=== PATIENT | female | born 1995 | race African-American/Black ===

== ENCOUNTER 2019-01-28 12:12 | Emergency (ER) | payer OTHER ==
--- NOTE | 2019-01-28 12:23 | PDOC ---
Rapid Medical Evaluation Time Seen by Provider: 01/28/19 12:20 Medical Evaluation: Allergies Allergy/AdvReac Type Severity Reaction Status Date / Time No Known Allergies Allergy Verified 01/28/19 12:15 01/28/19 12:20 I have performed a brief in-person evaluation of this patient. The patient presents with a chief complaint of: chest pain x 2-3 weeks after carrying something heavy, also some back pain. denies OCPs, recent surgery, smoking. went to [facility] November 21 Pertinent physical exam findings: well appearing I have ordered the following: EKG The patient will proceed to the ED for further evaluation. Discharge Disposition - Diagnosis Chest pain - Referrals - Patient Instructions - Post Discharge Activity
[2019-01-28 12:25] VITALS: BP 112/79; PULSE 71; TEMP 98.4; BMI 19.3
--- NOTE | 2019-01-28 13:31 | PDOC ---
History of Present Illness - General Chief Complaint: Chest Pain Stated Complaint: CHEST PAIN Time Seen by Provider: 01/28/19 12:20 History Source: Patient Exam Limitations: No Limitations - History of Present Illness Initial Comments: 01/28/19 13:25 HISTORY OF PRESENT ILLNESS: Is a 23-year-old woman denies medical history who presents emergency department for evaluation of upper back pain radiating to her chest status post heavy lifting 2 to 3 weeks ago. Patient reports she was carrying 7 or 8 water bottles at one time and noticed the pain. She reports the pain does get worse when she does any heavy lifting and occasionally after she eats. She denies recent travel, leg pain, oral contraception or smoking. She denies fevers, chills, shortness of breath, nausea, vomiting, cough. No recent travel or sick contacts. PAST MEDICAL HISTORY: Denies past medical history SURGICAL HISTORY: Denies ALLERGIES: No known drug allergies REVIEW OF SYSTEMS General/Constitutional: Denies fever or chills. Denies weakness, weight change. HEENT: Denies change in vision. Denies ear pain or discharge. Denies sore throat. Cardiovascular: Denies chest pain or shortness of breath. Respiratory: Denies cough, wheezing, or hemoptysis. Gastrointestinal: Denies nausea, vomiting, diarrhea or constipation. Denies rectal bleeding. Genitourinary: Denies dysuria, frequency, or change in urination. Musculoskeletal: See HPI Skin and breasts: Denies rash or easy bruising. Neurologic: Denies headache, vertigo, loss of consciousness, or loss of sensation. Psychiatric: Denies depression or anxiety. Endocrine: Denies increased thirst. Denies abnormal weight change. Hematologic/Lymphatic: Denies anemia, easy bleeding, or history of blood clots. Allergic/Immunologic: Denies hives or skin allergy. Denies latex allergy. PHYSICAL EXAM General Appearance: Well-appearing, appropriately dressed. No apparent distress , no intoxication. HEENT: EOMI, PERRLA, normal ENT inspection, normal voice, TMs normal, pharynx normal. No conjunctival pallor. No photophobia, scleral icterus. Neck: Supple. Trachea midline. No tenderness, rigidity, carotid bruit, stridor , lymphadenopathy, or thyromegaly. Respiratory/Chest: Lungs CTAB. No shortness of breath, chest tenderness, respiratory distress, accessory muscle use. No crackles, rales, rhonchi, stridor , wheezing, dullness Cardiovascular: RRR. S1, S2. No JVD, murmur, bradycardia, tachycardia. Vascular Pulses: Dorsalis-Pedis (R): 2+, Dorsalis-Pedis (L): 2+ Gastrointestinal/Abdominal: Normal bowel sounds. Abdomen soft, non-distended. No tenderness or rebound tenderness. No organomegaly, pulsatile mass, guarding, hernia, hepatomegaly, splenomegaly. Lymphatic: No adenopathy, tenderness. Musculoskeletal/Extremities: Normal inspection. FROM of all extremities, normal capillary refill. Pelvis Stable. No CVA tenderness. No tenderness to extremities, pedal edema, swelling, erythema or deformity. Integumentary: Appropriate color, dry, warm. No cyanosis, erythema, jaundice or rash Neurologic: [place] line attendant II-XII intact. Fully oriented, alert. Appropriate mood/affect. Motor strength 5/5. No appreciable EOM palsy, facial droop or sensory deficit. Is this a multiple visit Asthma Patient?: No Past History - Past Medical History Allergies/Adverse Reactions: Allergies Allergy/AdvReac Type Severity Reaction Status Date / Time No Known Allergies Allergy Verified 01/28/19 12:15 Home Medications: Ambulatory Orders NK [No Known Home Medication] 01/28/19 COPD: No - Psycho Social/Smoking Cessation Hx Smoking History: Never smoked Have you smoked in the past 12 months: No Information on smoking cessation initiated: No Hx Alcohol Use: No Drug/Substance Use Hx: No *Physical Exam - Vital Signs Last Vital Signs Temp Pulse Resp BP Pulse Ox 98.4 F 71 20 112/79 98 01/28/19 12:21 01/28/19 12:21 01/28/19 12:21 01/28/19 12:21 01/28/19 12:21 Medical Decision Making - Medical Decision Making 01/28/19 13:28 A/P: 23-year-old woman with atraumatic back pain radiating to her chest. PERC-0 EKG sinus rhythm with rate of 63. Sinus arrhythmia is noted. Normal intervals and axis present. No ischemic changes noted. Physical exam is within normal limits Likely dyspepsia given history and physical. Discharge home with strict return precautions. Discharge - Discharge Information Problems reviewed: Yes Clinical Impression/Diagnosis: Dyspepsia Condition: Stable Disposition: HOME - Admission No - Follow up/Referral Referrals: [facility] [place] [facility] [place] [Provider Group] - Patient Discharge Instructions Patient Printed Discharge Instructions: DI for Dyspepsia Additional Instructions: Take Maalox as directed by courtesy booth cashier's instructions as needed for pain. Avoid spicy foods and alcoholic beverages to your pain resolves. You have been given a referral for primary doctor. Call to schedule appointment for reevaluation. Return to emergency department for any new or worsening symptoms. Thank you very much for choosing us to provide your emergent health care needs. - Post Discharge Activity
[2019-01-28] MEDS ORDERED: MAG HYDROX/AL HYDROX/SIMETH 30 ML UNIT-DOSE CUP ONE (13:37)
[2019-01-28] MEDS ORDERED: MAG HYDROX/AL HYDROX/SIMETH 30 ML UNIT-DOSE CUP PO ONE (13:39)
--- NOTE | 2019-01-29 12:56 | EKG ---
Test Reason : Blood Pressure : / mmHG Vent. Rate : 063 BPM Atrial Rate : 063 BPM P-R Int : 148 ms QRS Dur : 088 ms QT Int : 370 ms P-R-T Axes : 065 078 060 degrees QTc Int : 378 ms SINUS RHYTHM WITH MARKED SINUS ARRHYTHMIA NO PREVIOUS ECGS AVAILABLE Confirmed by ZULY STUART MD ([id number]) on 01/29/2019 12:56:03 PM Referred By: Confirmed By:ZULY STUART MD
== END 2019-01-28 13:40 | disposition home or self-care (01) ==
LOC: JERFT 12:12
DX: R10.13 Epigastric pain (principal); M54.89 Other dorsalgia
CPT/HCPCS: 93005; 93010; 99282-25

== ENCOUNTER 2020-09-06 20:29 | Emergency (ER) | payer BC, OTHER ==
[2020-09-06 20:56] VITALS: BP 115/74; PULSE 69; TEMP 98.3; BMI 20.5
[2020-09-06] MEDS ORDERED: DEXAMETHASONE SOD PHOSPHATE 10 MG/1 ML VIAL IM ONE (21:43)
[2020-09-06] MEDS ORDERED: DEXAMETHASONE SOD PHOSPHATE 10 MG/1 ML VIAL ONE (21:50)
== END 2020-09-06 22:07 | disposition home or self-care (01) ==
LOC: JER 20:29
PROC: 3E0233Z Introduction of Anti-inflammatory into Muscle, Percutaneous Approach (ICD-10-PCS; principal; 2020-09-06)
DX: R05 Cough (principal)
CPT/HCPCS: 71046-TC-FY; 99284-25; J1100

== ENCOUNTER 2022-01-23 19:37 | Emergency (ER) | payer BC ==
[2022-01-23 19:46] VITALS: BP 110/45; PULSE 82; RESP 20; TEMP 98.4; BMI 21.2
== END 2022-01-23 20:22 | disposition home or self-care (01) ==
LOC: JER 19:37
DX: H60.12 Cellulitis of left external ear (principal); J06.9 Acute upper respiratory infection, unspecified
CPT/HCPCS: 0241U-QW; 99283-25

== ENCOUNTER 2022-10-19 16:00 | Emergency (ER) | payer BC ==
[2022-10-19 16:07] VITALS: BP 125/77; RESP 18; BMI 22.2
[2022-10-19] MEDS ORDERED: ACETAMINOPHEN 500 MG TABLET (FP) ONE (16:33)
[2022-10-19] MEDS ORDERED: ACETAMINOPHEN 500 MG TABLET (FP) PO ONE (16:33)
[2022-10-19 17:27] VITALS: PULSE 86; TEMP 100
== END 2022-10-19 17:34 | disposition home or self-care (01) ==
LOC: JERFT 16:00
DX: R05.1 Acute cough (principal); R50.81 Fever presenting with conditions classified elsewhere; R09.3 Abnormal sputum; R51.9 Headache, unspecified; J01.00 Acute maxillary sinusitis, unspecified; U07.1 COVID-19
CPT/HCPCS: 0241U-QW; 71046-TC-FY; 87651; 99284-25

== ENCOUNTER 2023-09-01 20:34 | Emergency (ER) | payer BC ==
[2023-09-01 20:55] VITALS: BP 121/73; PULSE 86; RESP 18; TEMP 99.1; BMI 24.3
== END 2023-09-01 21:19 | disposition home or self-care (01) ==
LOC: JERFT 20:34
DX: R09.82 Postnasal drip (principal); J30.9 Allergic rhinitis, unspecified; R05.9 Cough, unspecified; R09.81 Nasal congestion
CPT/HCPCS: 99282-25